=== PATIENT | male | born 1945 | race African-American/Black ===

== ENCOUNTER 2017-11-24 18:47 | Emergency (ER) | payer BC, MEDICAID ==
[2017-11-24 19:34] LABS: ADD MAN DIFF? NO
[2017-11-24] MEDS: LABETALOL 20 MG/4 ML DISP.SYRIN. IVP (19:41)
[2017-11-24 19:44] LABS: BASO # 0.1 x10^3/uL (0.0-0.2); BASO % 1 % (0-3); EOS # 0.3 x10^3/uL (0.0-0.7); EOS % 5 % (0-3); HEMOGLOBIN 15.8 g/dL (13.0-17.5); LYMPH # 1.6 x10^3/uL (1.0-4.8); LYMPH % 22 % (24-48); MEAN CORPUSCULAR HEMOGLOBIN 31 pg (25-35); MEAN CORPUSCULAR HGB CONC 34 g/dL (31-37); MEAN CORPUSCULAR VOLUME 93 fL (79-100); MONO # 0.5 x10^3/uL (0.0-1.1); MONO % 7 % (0-9); NEUT # 4.9 x10^3uL (1.8-7.7); NEUT % 66 % (31-73); PLATELET COUNT 356 x10^3/uL (140-400); RED BLOOD COUNT 5.05 x10^6/uL (4.30-5.70); RED CELL DISTRIBUTION WIDTH 13.9 % (11.5-14.5); WHITE BLOOD COUNT 7.4 x10^3/uL (4.0-11.0)
[2017-11-24 19:45] LABS: BARBITURATES NEG (NEG); BENZODIAZEPINES NEG (NEG); CANNABINOIDS NEG (NEG); COCAINE NEG (NEG); METHADONE NEG (NEG); OPIATES NEG (NEG); PHENCYCLIDINE NEG (NEG)
[2017-11-24 19:46] LABS: ANION GAP 14 (6-14); BILIRUBIN,URINE NEGATIVE (NEG); BLOOD UREA NITROGEN 13 mg/dL (8-26); BUN/CREATININE RATIO 14 (6-20); CARBON DIOXIDE 27 mmol/L (21-32); CHLORIDE 103 mmol/L (98-107); CLARITY,URINE CLEAR; CREATININE 0.9 mg/dL (0.7-1.3); GFR 82.5; GLUCOSE 119 mg/dL (70-99); GLUCOSE,URINE NEGATIVE (NEG); NITRITE,URINE NEGATIVE (NEG); POTASSIUM 3.8 mmol/L (3.5-5.1); PROTEIN,URINE NEGATIVE (NEG-TRACE); SODIUM 144 mmol/L (136-145); UROBILINOGEN,URINE 0.2 mg/dL (0.2 mg/dL)
[2017-11-24 19:48] LABS: AMPHETAMINE/METHAMPHETAMINE NEG (NEG); ETHANOL, URINE POS (NEG)
[2017-11-24 19:53] LABS: ALBUMIN 3.8 g/dL (3.4-5.0); ALBUMIN/GLOBULIN RATIO 1.1 (1.0-1.7); ALK PHOS 79 U/L (46-116); ALT (SGPT) 17 U/L (16-63); AST (SGOT) 20 U/L (15-37); MAGNESIUM 2.1 mg/dL (1.8-2.4); TOTAL BILIRUBIN 0.3 mg/dL (0.2-1.0); TOTAL PROTEIN 7.2 g/dL (6.4-8.2)
[2017-11-24 19:54] LABS: INR 0.9 (0.8-1.1); PROTHROMBIN TIME PATIENT 11.9 SEC (11.7-14.0)
[2017-11-24 19:55] LABS: TROPONINI < 0.017 ng/mL (0.000-0.055)
[2017-11-24 19:55] LABS: PARTIAL THROMBOPLASTIN TIME 42 SEC (24-38)
[2017-11-24 19:58] LABS: COLOR,URINE STRAW
[2017-11-24 20:03] LABS: CKMB INDEX 0.9 % (0-4); CKMB MASS 1.2 ng/mL (0.0-3.6); CREATINE KINASE 136 U/L (39-308)
[2017-11-24 20:03] LABS: NT-PRO BNP 305 pg/mL (0-124)
[2017-11-24 20:12] LABS: BACTERIA,URINE 0 /HPF (0-FEW); RBC,URINE RARE /HPF (0-2); SQUAMOUS EPITHELIAL CELL,UR FEW /LPF
[2017-11-24 20:13] LABS: TRICHOMONAS,URINE PRESENT
[2017-11-24 20:17] LABS: ETHANOL 112 mg/dL (0-10)
[2017-11-24] MEDS: amLODIPine BESYLATE 5 MG TABLET PO (20:39)
== END 2017-11-24 21:50 | disposition home or self-care (01) ==
LOC: ER 18:47
DX: I10 Essential (primary) hypertension (principal); F10.129 Alcohol abuse with intoxication, unspecified; E78.00 Pure hypercholesterolemia, unspecified
CPT/HCPCS: 36415; 70450; 71045; 80053; 80307; 81001; 82553; 83735; 83880; 84484; 85025; 85610; 85730; 87086; 93005; 96374; 99285-25; G0480; J3490